=== PATIENT | male | born 1975 | race Caucasian/White ===

== ENCOUNTER 2017-01-20 12:43 | Emergency (ER) | payer BC ==
[2017-01-20] MEDS ORDERED: Bacitracin Oint 1 GM U/D Packet TOP ONE (13:23)
[2017-01-20] MEDS ORDERED: Diphtheria,Pertussis(Acell),Tetanus Vaccine 0.5 ML SDV IM ONE (13:23)
--- NOTE | 2017-01-20 13:28 | EDM.PDOC ---
ED HPI GENERAL MEDICAL PROBLEM - General Chief Complaint: Laceration Stated Complaint: FINGER LACERATION Time Seen by Provider: 01/20/17 13:20 Source of Information: Reports: Patient, Family, RN Notes Reviewed History Limitations: Reports: No Limitations - History of Present Illness INITIAL COMMENTS - FREE TEXT/NARRATIVE: 41-year-old gentleman presents emergency department today with a laceration to his right index finger this occurred while he was processing deer meat, he is unsure of his tetanus, has no functional complaints right index finger Pain Score (Numeric/FACES): 1 - Related Data Allergies Allergy/AdvReac Type Severity Reaction Status Date / Time No Known Allergies Allergy Verified 01/20/17 13:05 Home Meds: Home Meds NK [No Known Home Meds] 06/30/13 [History] Past Medical History - Past Health History Medical/Surgical History: Denies Medical/Surgical History Social & Family History - Tobacco Use Smoking Status *Q: Current Every Day Smoker Years of Tobacco use: 20 Packs/Tins Daily: 1 - Alcohol Use Days Per Week of Alcohol Use: 0 - Recreational Drug Use Recreational Drug Use: No ED ROS GENERAL - Review of Systems Review Of Systems: See Below Constitutional: Reports: No Symptoms Skin: Reports: Wound Neurological: Reports: No Symptoms ED EXAM, SKIN/RASH Exam: See Below Text/Narrative:: Examination of the right hand radial pulse is +2 range of motion of all digits there is a 2 cm laceration completely through the dermis distal tip of digit #2 ED SKIN PROCEDURES - Laceration/Wound Repair Right Finger Lac/Wound length In cm: 2 Appearance: Subcutaneous, Clean Distal NVT: Neuro & Vascular Intact, No Tendon Injury Anesthetic Type: Digital Local Anesthesia - Lidocaine (Xylocaine): 1% Plain Local Anesthetic Volume: 2cc Skin Prep: Chlorhexidine (Hibiciens), Saline Saline Irrigation (cc's): 60 Exploration/Debridement/Repair: Wound Explored, In a Bloodless Field, Explored to Base Closed with: Sutures Suture Size: 4-0 # of Sutures: 4 Suture Type: Nylon, Interrupted Tetanus Status Addressed: Yes Complications: No Course - Vital Signs Last Recorded V/S: Last Vital Signs Temp 98.4 F 01/20/17 12:59 Pulse 84 01/20/17 12:59 Resp 14 01/20/17 12:59 BP 141/87 H 01/20/17 12:59 Pulse Ox 96 01/20/17 12:59 - Orders/Labs/Meds Orders: Active Orders 24 hr Category Date Time Status Vaccines to be Administered [RC] PER UNIT ROUTINE Care 01/20/17 13:23 Active Meds: Medications Discontinued Medications Generic Name Dose Route Start Last Admin Trade Name Geraldine PRN Reason Stop Dose Admin Bacitracin 1 dose 01/20/17 13:23 01/20/17 13:29 Bacitracin Oint 1 Gm TOP 01/20/17 13:24 1 dose ONETIME ONE Administration Diphtheria/Tetanus/Acell Pertussis 0.5 ml 01/20/17 13:23 01/20/17 13:29 Adacel IM 01/20/17 13:24 0.5 ml .ONCE ONE Administration Lidocaine HCl 5 ml 01/20/17 13:23 01/20/17 13:29 Xylocaine-Mpf 1% INJECT 01/20/17 13:24 5 ml ONETIME ONE Administration Departure - Departure Time of Disposition: 13:48 Disposition: Home, Self-Care 01 Condition: Good Clinical Impression: Laceration of right index finger Qualifiers: Encounter type: initial encounter Damage to nail status: with damage Foreign body presence: without foreign body Qualified Code(s): S61.310A - Laceration without foreign body of right index finger with damage to nail, initial encounter - Discharge Information Referrals: PCP,None [Primary Care Provider] - Forms: ED Department Discharge Additional Instructions: Follow wound care instruction sheet, follow up with primary care for suture removal or return to the emergency department, call with any development of new symptoms - My Orders Last 24 Hours: My Active Orders 01/20/17 13:23 Vaccines to be Administered [RC] PER UNIT ROUTINE - Assessment/Plan Last 24 Hours: My Active Orders 01/20/17 13:23 Vaccines to be Administered [RC] PER UNIT ROUTINE Plan: Assessment Acuity = acute Site and laterality = 2 cm laceration digit #2 right hand completely through the dermis Etiology = secondary trauma with a knife Manifestations = none Location of injury = Home Lab values = none Plan Suture removal in 10 days, follow with primary care, follow wound care instruction sheet Patient was in agreement with the plan all questions were answered, they were instructed to return to the emergency department or call for worsening symptoms. This note was dictated using [employer] voice recognition software please call with any questions.
== END 2017-01-20 14:01 | disposition home or self-care (01) ==
LOC: JP.ED 12:43
DX: S61.310A Laceration without foreign body of right index finger with damage to nail, initial encounter (principal); F17.210 Nicotine dependence, cigarettes, uncomplicated; W45.8XXA Other foreign body or object entering through skin, initial encounter; Z23 Encounter for immunization
CPT/HCPCS: 12001; 90471; 90715; 99283-25